=== PATIENT | male | born 1995 | race Caucasian/White ===

== ENCOUNTER 2021-05-30 17:49 | Emergency (ER) | payer OTHER ==
[~2021-05-30 17:49] MED LIST: BENTYL10 MG PO; MELATONIN10 M2 PO; ZOFRAN4 MG PO
[2021-05-30] MEDS ORDERED: IBUPROFEN800 MG PO (23:24)
== END 2021-05-30 23:40 | disposition home or self-care (01) ==
LOC: FER 17:49
DX: S20.212A Contusion of left front wall of thorax, initial encounter (principal); M25.561 Pain in right knee; M25.562 Pain in left knee; M54.9 Dorsalgia, unspecified; Z88.5 Allergy status to narcotic agent; Z87.09 Personal history of other diseases of the respiratory system; V49.40XA Driver injured in collision with unspecified motor vehicles in traffic accident, initial encounter; Y92.410 Unspecified street and highway as the place of occurrence of the external cause
CPT/HCPCS: 71101; 73560